=== PATIENT | male | born 1965 | race Caucasian/White ===

== ENCOUNTER 2020-05-31 07:22 | Emergency (ER) | payer OTHER, BC ==
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
== END 2020-05-31 08:25 | disposition home or self-care (01) ==
LOC: MW.ED 07:22
DX: M54.2 Cervicalgia (principal); F17.210 Nicotine dependence, cigarettes, uncomplicated; V89.2XXA Person injured in unspecified motor-vehicle accident, traffic, initial encounter
CPT/HCPCS: 99282